=== PATIENT | female | born 1965 | race African-American/Black ===

== ENCOUNTER 2023-09-09 12:20 | Inpatient (IN) | payer OTHER ==
[2023-09-09 13:06] VITALS: BMI 20.9
[2023-09-09] MEDS ORDERED: guaiFENesin 600 MG TABLET.ER (FP) PO PRN (15:34)
[2023-09-09] MEDS ORDERED: POLYETHYLENE GLYCOL (HEALTHYLAX) 3350 17 GM PACKET PO PRN (15:34)
[2023-09-09] MEDS ORDERED: NICOTINE POLACRILEX 2 MG LOZENGE BC PRN (15:34)
[2023-09-09] MEDS ORDERED: BISACODYL 5 MG TABLET.DR (FP) PO PRN (15:34)
[2023-09-09] MEDS ORDERED: BENZOCAINE/MENTHOL (CHLORASEPTIC ) LOZENGE MM PRN (15:34)
[2023-09-09] MEDS ORDERED: IBUPROFEN 400 MG TABLET (FP) PO PRN (15:34)
[2023-09-09] MEDS ORDERED: hydrOXYzine PAMOATE 25 MG CAPSULE (FP) PO PRN (15:34)
[2023-09-09] MEDS ORDERED: NICOTINE POLACRILEX 2 MG GUM BUC PRN (15:34)
[2023-09-09] MEDS ORDERED: MAG HYDROX/AL HYDROX/SIMETH 30 ML UNIT-DOSE CUP PO PRN (15:34)
[2023-09-09] MEDS ORDERED: BENZONATATE 200 MG CAPSULE PO PRN (15:34)
[2023-09-09] MEDS ORDERED: MAGNESIUM HYDROX 2400MG/30ML ORAL SUSPENSION 30 ML CUP PO PRN (15:34)
[2023-09-09] MEDS ORDERED: LOPERAMIDE HCL 2 MG CAPSULE PO PRN (15:34)
[2023-09-09] MEDS ORDERED: ACETAMINOPHEN 325 MG TABLET (FP) PO PRN (15:34)
[2023-09-09] MEDS: TUBERCULIN PPD 5 TU/0.1ML SYRINGE (IN PATIENT USE ONLY) ID ONE (19:15)
[2023-09-09 19:43] LABS: EPI CELLS >36 /uL (0-25.1); HYALINE CASTS 1 /uL (0-3.1); PH,URINE 5.5 (5.0-8.0); URINE APPEARANCE CLOUDY; URINE BACTERIA 1259 /uL (0-1359); URINE BILIRUBIN NEGATIVE (NEGATIVE); URINE COLOR YELLOW; URINE GLUCOSE (UA) NEGATIVE (NEGATIVE); URINE KETONE TRACE (NEGATIVE); URINE LEUK ESTERASE 1+ (NEGATIVE); URINE NITRITE NEGATIVE (NEGATIVE); URINE PROTEIN 1+ (NEGATIVE); URINE RBC 14 /uL (0-23.9); URINE WBC 96 /uL (0-25.8)
[2023-09-09] MEDS: amLODIPine BESYLATE 5 MG TABLET (FP) PO ONE (21:39)
[2023-09-09] MEDS: MELATONIN 5 MG TABLETS PO SCH (23:32)
[2023-09-09] MEDS: THIAMINE 100 MG TABLET PO SCH (23:32)
[2023-09-09] MEDS: IBUPROFEN 600 MG TABLET (FP) PO PRN (23:33)
[2023-09-10] MEDS: PRENATAL VITAMINS W/ FOLIC ACID TABLET (FP) PO SCH (10:58)
[2023-09-10] MEDS: amLODIPine BESYLATE 10 MG TABLET (FP) PO SCH (12:18)
[2023-09-10] MEDS: FERROUS SO4 325 MG TABLET (FP) PO SCH (12:18)
[2023-09-10] MEDS: BACITRACIN 0.9 GM PACKET TP SCH (13:25)
[2023-09-10 14:39] LABS: HEMATOCRIT 27.3 % (32.4-45.2); HEMOGLOBIN 8.3 GM/dL (10.7-15.3); MCH 21.8 pg (25.7-33.7); MCHC 30.5 g/dl (32.0-36.0); MEAN CELL VOLUME 71.3 fl (80-96); MEAN PLT VOLUME 8.3 fl (7.5-11.1); PLATELET COUNT 233 10^3/uL (134-434); RBC 3.83 M/mm3 (3.60-5.2); RDW 23.9 % (11.6-15.6); WHITE BLOOD COUNT 4.4 K/mm3 (4.0-10.0)
[2023-09-10 14:54] LABS: CHLORIDE 98 mmol/L (98-107); SODIUM 137 mmol/L (136-145)
[2023-09-10 14:56] LABS: CALCIUM 9.4 mg/dL (8.5-10.1)
[2023-09-10 14:57] LABS: ALBUMIN 3.2 g/dl (3.4-5.0); BLOOD UREA NITROGEN 6.5 mg/dL (7-18); CO2 30 mmol/L (21-32)
[2023-09-10 14:59] LABS: SGPT/ALT 32 U/L (13-61)
[2023-09-10 15:00] LABS: CREATININE 0.7 mg/dL (0.55-1.3); SGOT/AST 61 U/L (15-37)
[2023-09-10 15:01] LABS: BILIRUBIN,TOTAL 1.5 mg/dL (0.2-1); TOT PROT 7.6 g/dl (6.4-8.2)
[2023-09-10 15:03] LABS: ALK PHOS 89 U/L (45-117)
[2023-09-10 15:22] LABS: ANION GAP 9 mmol/L (4-13); GLUCOSE,RANDOM 82 mg/dL (74-106); POTASSIUM 2.8 mmol/L (3.5-5.1)
[2023-09-10] MEDS: POTASSIUM CHLORIDE ORAL LIQUID 20 MEQ/15 ML PO ONE ×2 (16:42→22:00)
[2023-09-11 08:33] LABS: CHLORIDE 103 mmol/L (98-107); POTASSIUM 3.2 mmol/L (3.5-5.1); SODIUM 139 mmol/L (136-145)
[2023-09-11 08:41] LABS: ANION GAP 5 mmol/L (4-13); BLOOD UREA NITROGEN 6.2 mg/dL (7-18); CO2 30 mmol/L (21-32)
[2023-09-11 08:42] LABS: GLUCOSE,RANDOM 94 mg/dL (74-106)
[2023-09-11 08:45] LABS: CREATININE 0.5 mg/dL (0.55-1.3)
[2023-09-11 08:54] LABS: MAGNESIUM 0.9 mg/dL (1.8-2.4)
[2023-09-11] MEDS: MAGNESIUM OXIDE 400 MG TABLET (FP) PO SCH (21:12)
[2023-09-11] MEDS: POTASSIUM CHLORIDE TABS 20 MEQ TABLET.ER (FP) PO SCH (21:12)
[2023-09-12 11:12] LABS: BASO % 1.4 % (0-2.0); EOS % 4.3 % (0-4.5); HEMATOCRIT 30.3 % (32.4-45.2); HEMOGLOBIN 9.2 GM/dL (10.7-15.3); MCH 22.1 pg (25.7-33.7); MCHC 30.3 g/dl (32.0-36.0); MEAN CELL VOLUME 72.9 fl (80-96); MEAN PLT VOLUME 8.4 fl (7.5-11.1); MONO % 7.3 % (3.8-10.2); PLATELET COUNT 287 10^3/uL (134-434); RBC 4.16 M/mm3 (3.60-5.2); RDW 23.9 % (11.6-15.6); WHITE BLOOD COUNT 4.3 K/mm3 (4.0-10.0)
[2023-09-12 11:14] LABS: INR 1.01 (0.83-1.09); PROTHROMBIN TIME (PATIENT) 11.6 SEC (9.7-13.0)
[2023-09-12 11:39] LABS: ANISOCYTOSIS 3+; MACROCYTOSIS 0
[2023-09-12 12:11] LABS: POTASSIUM 3.6 mmol/L (3.5-5.1)
[2023-09-12 12:13] LABS: ALBUMIN 3.5 g/dl (3.4-5.0); CALCIUM 9.5 mg/dL (8.5-10.1); MAGNESIUM 1.2 mg/dL (1.8-2.4)
[2023-09-12 12:14] LABS: BLOOD UREA NITROGEN 8.6 mg/dL (7-18)
[2023-09-12 12:16] LABS: CREATININE 0.8 mg/dL (0.55-1.3)
[2023-09-12 12:18] LABS: BILIRUBIN,TOTAL 1.6 mg/dL (0.2-1); TOT PROT 8.5 g/dl (6.4-8.2)
[2023-09-13] MEDS: LACTULOSE 20 GM/30 ML UDC (FOR ORAL USE ONLY) PO SCH (21:38)
[2023-09-14] MEDS: DOCUSATE SODIUM 100 MG CAPSULE (FP) PO PRN (10:20)
[2023-09-16 22:49] VITALS: RESP 18
[2023-09-17 06:54] VITALS: TEMP 98.1
[2023-09-17 09:33] VITALS: BP 121/77; PULSE 106
== END 2023-09-17 11:40 | disposition home or self-care (01) | DRG 772 ==
LOC: YASAS 12:20 → EDBD 12:20 → Y3NR 16:23 → Y5N 09-11 13:56
PROVIDERS: ADMIT Allergy & Immunology; ATTEND Psychiatry & Neurology Pain Medicine
PROC: HZ42ZZZ Group Counseling for Substance Abuse Treatment, Cognitive-Behavioral (ICD-10-PCS; principal; 2023-09-09)
DX: F10.20 Alcohol dependence, uncomplicated (principal); F32.A Depression, unspecified; E72.20 Disorder of urea cycle metabolism, unspecified; E87.6 Hypokalemia; E83.42 Hypomagnesemia
CPT/HCPCS: 36415; 80048; 80053; 80305; 80307; 81003; 82140; 82652; 83735; 85025; 85027; 85610; 86593; 86780; 87811; 93005; 93010

== ENCOUNTER 2024-01-23 11:27 | Observation (INO) | payer OTHER ==
[2024-01-23] MEDS ORDERED: THIAMINE HCL 200 MG/2 ML VIAL ONE (12:35)
[2024-01-23] MEDS ORDERED: diazePAM CARPU-JECT 10 MG/2 ML DISP.SYRIN ONE (12:35)
[2024-01-23 12:36] LABS: VENOUS BASE EXCESS -2.6 mmol/L (-2-2); VENOUS O2 SATURATION 85.4 % (70-80); VENOUS PCO2 26.9 mmHg (38-52); VENOUS PH 7.481 (7.310-7.410)
[2024-01-23] MEDS: LACTATED RINGERS SOLUTION 1000 ML INFUS.BAG IV ONE (12:44)
[2024-01-23] MEDS: THIAMINE HCL 200 MG/2 ML VIAL IM ONE (12:44)
[2024-01-23] MEDS: diazePAM CARPU-JECT 10 MG/2 ML DISP.SYRIN IVPUSH ONE (12:44)
[2024-01-23 12:48] LABS: BASO % 0.3 % (0-2.0); EOS % 0.1 % (0-4.5); HEMATOCRIT 35.2 % (32.4-45.2); HEMOGLOBIN 11.4 GM/dL (10.7-15.3); LYMPH % 8.7 % (8-40); MCH 28.3 pg (25.7-33.7); MCHC 32.4 g/dl (32.0-36.0); MEAN CELL VOLUME 87.4 fl (80-96); MEAN PLT VOLUME 9.4 fl (7.5-11.1); MONO % 6.3 % (3.8-10.2); NEUT % 84.6 % (42.8-82.8); PLATELET COUNT 133 10^3/uL (134-434); RBC 4.03 M/mm3 (3.60-5.2); RDW 25.3 % (11.6-15.6); WHITE BLOOD COUNT 4.4 K/mm3 (4.0-10.0)
[2024-01-23 12:55] LABS: INR 1.13 (0.83-1.09); PROTHROMBIN TIME (PATIENT) 12.7 SEC (9.7-13.0)
[2024-01-23 12:57] LABS: CHLORIDE 93 mmol/L (98-107); SODIUM 139 mmol/L (136-145)
[2024-01-23 12:59] LABS: LACTIC ACID 3.4 mmol/L (0.4-2.0)
[2024-01-23 12:59] LABS: CALCIUM 9.6 mg/dL (8.5-10.1); POTASSIUM 2.6 mmol/L (3.5-5.1)
[2024-01-23 13:00] LABS: ALBUMIN 3.8 g/dl (3.4-5.0); ANION GAP 25 mmol/L (4-13); CO2 21 mmol/L (21-32); GLUCOSE,RANDOM 99 mg/dL (74-106)
[2024-01-23 13:03] LABS: CREATININE 0.8 mg/dL (0.55-1.3); MAGNESIUM 0.8 mg/dL (1.8-2.4); SGOT/AST 162 U/L (15-37)
[2024-01-23 13:04] LABS: BILIRUBIN,TOTAL 3.2 mg/dL (0.2-1)
[2024-01-23 13:05] LABS: TOT PROT 8.4 g/dl (6.4-8.2)
[2024-01-23 13:06] LABS: ALK PHOS 92 U/L (45-117)
[2024-01-23 13:07] LABS: SGPT/ALT 49 U/L (13-61)
[2024-01-23 13:24] LABS: ANISOCYTOSIS 3+; MACROCYTOSIS 0; TARGET CELLS 1+
[2024-01-23] MEDS ORDERED: MAGNESIUM SULFATE IN WATER 2 GM/50 ML IVPB IVPB ONE (15:10)
[2024-01-23] MEDS: MAGNESIUM SULFATE IN WATER 2 GM/50 ML IVPB IVPB ONE (15:19)
[2024-01-23] MEDS ORDERED: KCL 10 MEQ IVPB 10 MEQ/100 ML INFUS.BAG IVPB ONE ×2 (15:31→16:49)
[2024-01-23] MEDS: KCL 10 MEQ IVPB 10 MEQ/100 ML INFUS.BAG IVPB SCH ×2 (15:39→19:12)
[2024-01-23] MEDS ORDERED: POTASSIUM CHLORIDE ORAL LIQUID 20 MEQ/15 ML ONE (16:49)
[2024-01-23] MEDS: POTASSIUM CHLORIDE ORAL LIQUID 20 MEQ/15 ML PO ONE ×2 (16:55→20:26)
[2024-01-23] MEDS ORDERED: chlordiazePOXIDE HCL 25 MG CAPSULE PO PRN (17:11)
[2024-01-23 17:35] LABS: CHLORIDE 92 mmol/L (98-107); SODIUM 136 mmol/L (136-145)
[2024-01-23 17:36] LABS: ANION GAP 21 mmol/L (4-13); CALCIUM 9.3 mg/dL (8.5-10.1); CO2 23 mmol/L (21-32); GLUCOSE,RANDOM 82 mg/dL (74-106); MAGNESIUM 1.4 mg/dL (1.8-2.4); POTASSIUM 2.9 mmol/L (3.5-5.1)
[2024-01-23 17:40] LABS: CREATININE 0.8 mg/dL (0.55-1.3)
[2024-01-23] MEDS ORDERED: diazePAM 5 MG TABLET PO PRN (17:49)
[2024-01-23] MEDS ORDERED: FOLIC ACID 1 MG TABLET (FP) ONE (18:08)
[2024-01-23] MEDS: FOLIC ACID 1 MG TABLET (FP) PO ONE (18:08)
[2024-01-23] MEDS: POTASSIUM CHLORIDE TABS 10 MEQ TABLET.ER (FP) PO ONE (19:05)
[2024-01-23] MEDS: TRIMETHOBENZAMIDE HCL 200MG/2ML INJ IM PRN (20:23)
[2024-01-23] MEDS ORDERED: chlordiazePOXIDE HCL 25 MG CAPSULE PO SCH (23:00)
[2024-01-23] MEDS: IBUPROFEN 600 MG TABLET (FP) PO PRN (23:25)
[2024-01-23] MEDS: diazePAM 5 MG TABLET PO SCH (23:26)
[2024-01-23] MEDS: LACTATED RINGERS SOLUTION 1,000 ML/1,000 ML INFUS.BAG IV SCH (23:51)
[2024-01-23] MEDS: MAGNESIUM 2GM/50ML STERILE WATER IVPB IVPB ONE (23:51)
[2024-01-23] MEDS: ONDANSETRON 4 MG/2 ML VIAL IVPUSH SCH (23:58)
[2024-01-24] MEDS ORDERED: ACETAMINOPHEN 325 MG TABLET (FP) PO PRN (02:00)
[2024-01-24 07:50] LABS: POTASSIUM 3.1 mmol/L (3.5-5.1)
[2024-01-24 07:56] LABS: ALBUMIN 3.9 g/dl (3.4-5.0); CALCIUM 9.2 mg/dL (8.5-10.1)
[2024-01-24 07:57] LABS: BLOOD UREA NITROGEN 5.6 mg/dL (7-18); MAGNESIUM 1.8 mg/dL (1.8-2.4)
[2024-01-24 07:59] LABS: PHOSPHOROUS 2.2 mg/dL (2.5-4.9)
[2024-01-24 08:00] LABS: CREATININE 0.9 mg/dL (0.55-1.3)
[2024-01-24 08:01] LABS: BILIRUBIN,TOTAL 3.5 mg/dL (0.2-1); TOT PROT 8.2 g/dl (6.4-8.2)
[2024-01-24 08:02] LABS: BILIRUBIN,DIRECT 1.1 mg/dL (0.0-0.2)
[2024-01-24 08:33] LABS: BASO % 0.5 % (0-2.0); HEMATOCRIT 34.5 % (32.4-45.2); HEMOGLOBIN 11.2 GM/dL (10.7-15.3); LYMPH % 29.9 % (8-40); MCH 28.4 pg (25.7-33.7); MCHC 32.5 g/dl (32.0-36.0); MEAN CELL VOLUME 87.6 fl (80-96); MEAN PLT VOLUME 9.4 fl (7.5-11.1); MONO % 7.2 % (3.8-10.2); NEUT % 61.4 % (42.8-82.8); PLATELET COUNT 129 10^3/uL (134-434); RBC 3.94 M/mm3 (3.60-5.2); RDW 25.7 % (11.6-15.6); WHITE BLOOD COUNT 4.9 K/mm3 (4.0-10.0)
[2024-01-24 09:12] LABS: BILIRUBIN,TOTAL 3.5 mg/dL (0.2-1)
[2024-01-24] MEDS: ENOXAPARIN NA (PORCINE) 40 MG/0.4 ML DISP.SYRIN SQ SCH (09:33)
[2024-01-24] MEDS: THIAMINE 100 MG TABLET PO SCH (09:35)
[2024-01-24] MEDS: POTASSIUM PHOSPHATE 30 MM in SODIUM CHLORIDE 500 ML IVPB ONE (10:59)
[2024-01-24] MEDS: diazePAM 5 MG TABLET PO ONE (13:04)
[2024-01-24] MEDS: POTASSIUM CHLORIDE ORAL LIQUID 20 MEQ/15 ML PO ONE (13:05)
[2024-01-24] MEDS: MAGNESIUM 2GM/50ML STERILE WATER IVPB IVPB ONE (13:05)
[2024-01-25] MEDS ORDERED: chlordiazePOXIDE HCL 25 MG CAPSULE PO SCH (05:00)
[2024-01-25] MEDS: diazePAM 5 MG TABLET PO SCH (06:13)
[2024-01-25 08:31] LABS: BASO % 0.6 % (0-2.0); EOS % 1.3 % (0-4.5); HEMATOCRIT 31.1 % (32.4-45.2); HEMOGLOBIN 10.2 GM/dL (10.7-15.3); LYMPH % 27.2 % (8-40); MCH 28.4 pg (25.7-33.7); MCHC 32.8 g/dl (32.0-36.0); MEAN CELL VOLUME 86.6 fl (80-96); MONO % 8.7 % (3.8-10.2); NEUT % 62.2 % (42.8-82.8); PLATELET COUNT 111 10^3/uL (134-434); RDW 24.9 % (11.6-15.6); WHITE BLOOD COUNT 3.9 K/mm3 (4.0-10.0)
[2024-01-25 08:41] LABS: CHLORIDE 95 mmol/L (98-107); POTASSIUM 2.9 mmol/L (3.5-5.1); SODIUM 135 mmol/L (136-145)
[2024-01-25 08:43] LABS: ALBUMIN 3.2 g/dl (3.4-5.0); ANION GAP 9 mmol/L (4-13); BLOOD UREA NITROGEN 5.2 mg/dL (7-18); CALCIUM 9.6 mg/dL (8.5-10.1); CO2 31 mmol/L (21-32)
[2024-01-25 08:44] LABS: GLUCOSE,RANDOM 104 mg/dL (74-106); MAGNESIUM 1.3 mg/dL (1.8-2.4)
[2024-01-25 08:46] LABS: SGOT/AST 127 U/L (15-37); SGPT/ALT 36 U/L (13-61)
[2024-01-25 08:47] LABS: CREATININE 0.7 mg/dL (0.55-1.3)
[2024-01-25 08:48] LABS: BILIRUBIN,TOTAL 1.7 mg/dL (0.2-1); TOT PROT 6.8 g/dl (6.4-8.2)
[2024-01-25 08:49] LABS: ALK PHOS 91 U/L (45-117)
[2024-01-25] MEDS: POTASSIUM CHLORIDE ORAL LIQUID 20 MEQ/15 ML PO ONE (09:53)
[2024-01-25] MEDS: MAGNESIUM 2GM/50ML STERILE WATER IVPB IVPB ONE (09:53)
[2024-01-25] MEDS: POTASSIUM PHOSPHATE 30 MM in SODIUM CHLORIDE 500 ML IVPB ONE (10:50)
[2024-01-25 18:04] VITALS: BMI 19.7
[2024-01-25 18:48] VITALS: RESP 18
[2024-01-26] MEDS ORDERED: chlordiazePOXIDE HCL 10 MG CAPSULE PO PRN
[2024-01-26] MEDS ORDERED: chlordiazePOXIDE HCL 10 MG CAPSULE PO SCH (05:00)
[2024-01-26] MEDS: diazePAM 5 MG TABLET PO SCH (05:59)
[2024-01-26 08:16] LABS: HEMATOCRIT 31.7 % (32.4-45.2); HEMOGLOBIN 10.2 GM/dL (10.7-15.3); MCH 28.4 pg (25.7-33.7); MCHC 32.3 g/dl (32.0-36.0); MEAN PLT VOLUME 9.7 fl (7.5-11.1); PLATELET COUNT 120 10^3/uL (134-434); RBC 3.61 M/mm3 (3.60-5.2); RDW 24.3 % (11.6-15.6); WHITE BLOOD COUNT 3.4 K/mm3 (4.0-10.0)
[2024-01-26 08:29] LABS: POTASSIUM 3.2 mmol/L (3.5-5.1)
[2024-01-26 08:32] LABS: ALBUMIN 3.2 g/dl (3.4-5.0)
[2024-01-26 08:33] LABS: BLOOD UREA NITROGEN 7.1 mg/dL (7-18); CALCIUM 9.3 mg/dL (8.5-10.1); MAGNESIUM 1.2 mg/dL (1.8-2.4)
[2024-01-26 08:36] LABS: CREATININE 0.5 mg/dL (0.55-1.3); PHOSPHOROUS 3.4 mg/dL (2.5-4.9)
[2024-01-26 08:37] LABS: TOT PROT 6.8 g/dl (6.4-8.2)
[2024-01-26 08:39] LABS: BILIRUBIN,TOTAL 1.4 mg/dL (0.2-1)
[2024-01-26] MEDS: POTASSIUM CHLORIDE ORAL LIQUID 20 MEQ/15 ML PO SCH ×2 (09:39→11:19)
[2024-01-26] MEDS: MAGNESIUM 2GM/50ML STERILE WATER IVPB IVPB ONE (09:39)
[2024-01-26] MEDS: KCL 10 MEQ IVPB 10 MEQ/100 ML INFUS.BAG IVPB SCH (09:39)
[2024-01-26 13:39] VITALS: BP 148/124; PULSE 134; TEMP 98.2
[2024-01-27] MEDS ORDERED: chlordiazePOXIDE HCL 10 MG CAPSULE PO SCH (05:00)
[2024-01-27] MEDS ORDERED: diazePAM 5 MG TABLET PO ONE (06:00)
[2024-01-28] MEDS ORDERED: chlordiazePOXIDE HCL 10 MG CAPSULE PO ONE (05:00)
== END 2024-01-26 14:30 | disposition home or self-care (01) ==
LOC: JER 11:27 → INTOOBSV 13:09 → JERBED 13:09 → J4W 18:47
PROVIDERS: ADMIT Student in an Organized Health Care Education/Training Program; ATTEND Internal Medicine
PROC: 3E033NZ Introduction of Analgesics, Hypnotics, Sedatives into Peripheral Vein, Percutaneous Approach (ICD-10-PCS; principal; 2024-01-23)
PROC: 3E0337Z Introduction of Electrolytic and Water Balance Substance into Peripheral Vein, Percutaneous Approach (ICD-10-PCS; 2024-01-23)
PROC: 3E033GC Introduction of Other Therapeutic Substance into Peripheral Vein, Percutaneous Approach (ICD-10-PCS; 2024-01-23)
PROC: 3E023GC Introduction of Other Therapeutic Substance into Muscle, Percutaneous Approach (ICD-10-PCS; 2024-01-23)
DX: F10.939 Alcohol use, unspecified with withdrawal, unspecified (principal); F10.99 Alcohol use, unspecified with unspecified alcohol-induced disorder; E87.20 Acidosis, unspecified; D64.9 Anemia, unspecified; R11.2 Nausea with vomiting, unspecified; R74.01 Elevation of levels of liver transaminase levels; E87.6 Hypokalemia
CPT/HCPCS: 0241U-QW; 36415; 71046-TC-FY; 74177-TC; 80048; 80053; 80307; 82247; 82248; 82550; 82553; 82728; 82803; 83540; 83550; 83605; 83690; 83735; 84100; 84484; 85025; 85027; 85610; 85730; 87040; 93005; 93010; 96361; 96365; 96366; 96367; 96372; 96375; 96376; 99291; G0378